=== PATIENT | female | born 1995 | race Caucasian/White ===

== ENCOUNTER 2017-01-11 11:09 | Emergency (ER) | payer SELFPAY ==
[~2017-01-11] VITALS: Wt 90.6 kg
[2017-01-11] MEDS ORDERED: LIDOCAINE/MYLANTA 40 ML BTL PO STA (11:53)
[2017-01-11] MEDS ORDERED: FAMOTIDINE 20 MG INJ IV STA (11:53)
[2017-01-11] MEDS ORDERED: SOD CHLORIDE 0.9% 500 ML IV STA (11:53)
[2017-01-11 12:16] LABS: ADD SCAN DIFF NO
[2017-01-11 12:27] LABS: BASOPHILS % 0.3 % (0.0-2.0); EOSINOPHILS # 0.3 10^3/ul (0.0-0.5); EOSINOPHILS % 2.4 % (0.0-7.0); HEMATOCRIT 39.6 % (37.0-47.0); HEMOGLOBIN 13.4 g/dl (12.0-16.0); LYMPHOCYTES # 3.4 10^3/ul (0.8-2.9); LYMPHOCYTES % 28.6 % (18.0-55.0); MEAN CORPUSCULAR HEMOGLOBIN 27.4 pg (29.0-33.0); MEAN CORPUSCULAR HGB CONC 33.8 g/dl (32.0-37.0); MONOCYTE # 0.8 10^3/ul (0.3-0.9); MONOCYTES % 6.3 % (0.0-13.0); NEUTROPHIL # 7.5 10^3/ul (1.6-7.5); NEUTROPHILS % 62.2 % (30.0-74.0); PLATELET COUNT 374 10^3/UL (140-415); RED BLOOD COUNT 4.89 10^6/ul (4.20-5.40); RED CELL DISTRIBUTION WIDTH 12.8 % (11.5-14.5)
[2017-01-11 12:29] LABS: ADD UMIC YES; UR AMORPHOUS CRYSTAL FEW /HPF (NONE SEEN); UR ASCORBIC ACID NEGATIVE (NEGATIVE); UR BACTERIA FEW /HPF (NONE SEEN); UR BILIRUBIN (Dip) NEGATIVE (NEGATIVE); UR BLOOD (Dip) NEGATIVE (NEGATIVE); UR CLARITY SLIGHTLY CLOUDY (CLEAR); UR COLOR YELLOW (YELLOW); UR GLUCOSE (Dip) NEGATIVE (NEGATIVE); UR KETONES (Dip) NEGATIVE (NEGATIVE); UR LEUKOCYTE ESTERASE (Dip) TRACE Leu/ul (NEGATIVE); UR NITRITE (Dip) NEGATIVE (NEGATIVE); UR RBC 2 /HPF (0-5); UR SPECIFIC GRAVITY (Dip) 1.024 (1.003-1.030); UR SQUAMOUS EPITHELIAL CELL FEW /HPF (FEW); UR TOTAL PROTEIN (Dip) NEGATIVE (NEGATIVE); UR UROBILINOGEN (Dip) NEGATIVE (NEGATIVE)
[2017-01-11 12:44] LABS: ALBUMIN 4.3 g/dl (3.3-4.9); ALBUMIN/GLOBULIN RATIO 1.02; BILIRUBIN,INDIRECT 0.3 mg/dl (0-1.1); BILIRUBIN,TOTAL 0.3 mg/dl (0.2-1.3); CALCIUM 9.7 mg/dl (8.4-10.2); CREATININE 0.65 mg/dl (0.44-1.00); TOTAL PROTEIN 8.5 g/dl (6.1-8.1)
--- NOTE | 2017-01-11 13:06 | RADRPT ---
PROCEDURE: CT Abdomen and Pelvis without contrast. CLINICAL INDICATION: Abdominal pain TECHNIQUE: CT scan of the abdomen and pelvis without contrast was [facility] without intravenous contrast. Coronal and sagittal reformatted images were obtained from the axial source images. Images were reviewed on a high-resolution PACS workstation. One or more of the following does reduction techniques were used: Automated exposure control; adjustment of the mA an d/or kV according to patient size; use of the aorta of reconstruction technique. The total exam CTD I equals 17.7 mGy and the total exam DLP equals 1070 2.33 mGy-cm. COMPARISON: None available. FINDINGS: The lung bases are clear. Heart size is normal, and there is no evidence of pericardial thickening or effusion. Note is made of pneumobilia. The liver, spleen, and pancreas are otherwise normal. There is mild d ilatation of the extrahepatic bile duct which measures up to 9 mm. There is a biliary stent which i s predominantly within the duodenum, though the proximal tip may be lodged within the region of the ampulla.. The gallbladder is contracted.. The adrenal glands are normal. The kidneys without renal calculus or hydronephrosis. The aorta is of normal caliber. There is no retroperitoneal lymph node enlargment. There is no evidence of large or small bowel obstruction. There is mild retained colonic stool. A normal appendix is identified. No free fluid or fluid collections are identified. No inflammatory changes are seen. The uterus is present. No enlarged pelvic sidewall lymph nodes are seen. The bladder is decompresse d and collapsed. No free fluid is identified. The inguinal regions are unremarkable. The bones are intact. IMPRESSION: 1. Biliary ductal stent which is predominantly within the duodenum. The proximal tip of the stent is likely within the distal common bile duct. There is mild common bile duct dilatation and pneumob rafael. RPTAT: KK .Conrado Gilbert MD, MD Date Time Electronically viewed and signed by .Conrado Gilbert MD, MD on 01/11/2017 13:05 .B/
--- NOTE | 2017-01-11 14:01 | RADRPT ---
PROCEDURE: US Abdomen (right upper quadrant). CLINICAL INDICATION: Abdominal pain. TECHNIQUE: Multiple real-time longitudinal and transverse images of the right upper quadrant of th e abdomen were acquired utilizing a curved array transducer. Images were reviewed on a high-resoluti on PACS workstation. COMPARISON: Correlation with CT from the same day. FINDINGS: The liver is normal in size and echogenicity without focal mass or intrahepatic biliary dilatation. The gallbladder is normal. There is no pericholecystic fluid or gallbladder wall thickening or gal lstones. No intrahepatic biliary dilatation is seen. The common bile duct measures 6.7 mm in maxim al dimension. The pancreas is not well seen due to overlying bowel gas. No free fluid is identifie d. The right kidney measures 11.5 cm in length. There is normal echogenicity within the right kidney. There is no perinephric fluid collection. No hydronephrosis, mass, or calculus is seen. IMPRESSION: Prominent common bile duct measuring 6.7 mm. The CBD stent is not seen. RPTAT: JJ .Som Gutierrez MD, MD Date Time Electronically viewed and signed by .Som Gutierrez MD, on 01/11/2017 14:00 .A/
[2017-01-11] MEDS ORDERED: FAMO-96 PO (14:13)
[2017-01-11] MEDS ORDERED: ACET1TAB40 PO (14:13)
--- NOTE | 2017-01-11 14:40 | ERD ---
ER Documentation Chief Complaint Date/Time DATE: 01/11/17 TIME: 14:32 Chief Complaint ABD PAIN FOR THE PAST 2 DAYS, PT HAS SOME NAUSEA . NO DYSURIA NOTED. HPI This is a 21-year-old female with history of a stent placed in her common bile duct 1 year ago and pyloric stenosis as a child presenting to the emergency department complaining of epigastric pain and acid reflux for the past week. Patient denies any current nausea today. Denies any vomiting, diarrhea, constipation, dysuria, fevers. Patient states that she tried omeprazole for the past week without any relief. Patient states that she has been seen at [facility] in which they have done an ultrasound did not find anything and discharge her. Patient states that she took 2 Tylenol this morning without any relief. ROS All systems reviewed and are negative except as per history of present illness. Medications Home Meds Active Scripts Acetaminophen with Codeine (Acetaminophen-Cod #3 Tablet) 1 Each Tablet, 1 TAB PO Q6H Y for PAIN, #7 TAB Prov:DAVON OLIVER PA-C 01/11/17 Famotidine* (Pepcid*) 20 Mg Tablet, 20 MG PO BID for 14 Days, TAB Prov:DAVON OLIVER PA-C 01/11/17 PMhx/Soc History of Surgery: No Anesthesia Reaction: No Hx Neurological Disorder: No Hx Respiratory Disorders: No Hx Cardiac Disorders: No Hx Psychiatric Problems: No Hx Miscellaneous Medical Probl: No Hx Alcohol Use: No Hx Substance Use: No Hx Tobacco Use: No Smoking Status: Never smoker Physical Exam Vitals Vital Signs Date Time Temp Pulse Resp B/P Pulse Ox O2 Delivery O2 Flow Rate FiO2 01/11/17 11:19 98.2 97 20 140/75 100 Physical Exam GENERAL: well-developed/well-nourished, in no apparent distress, non-toxic appearing HENT: NC/AT, moist mucous membranes EYES: Conjunctiva normal NECK: Supple, no lymphadenopathy PULM: CTA bilaterally, no rales, rhonchi, or wheezing heard CV: Normal S1S2, RRR, good capillary refill GI: Soft, non-distended, tender to palpation epigastric region Normal bowel sounds, no masses or organomegaly felt on exam No gross peritonitis, no bruits Negative Rovsing, negative Ye, negative McBurney's point, Negative CVAT BACK: No masses EXT: No clubbing, cyanosis, or edema NEURO: Alert and Orientated SKIN: Intact, normal turgor PSYCH: Normal mood and mentation Result Diagram: 01/11/17 1200 01/11/17 1200 Results 24 hrs Laboratory Tests Test 01/11/17 11:00 01/11/17 12:00 Urine Color YELLOW Urine Clarity SLIGHTLY CLOUDY Urine pH 7.0 Urine Specific [place] 1.024 Urine Ketones NEGATIVEmg/dL Urine Nitrite NEGATIVEmg/dL Urine Bilirubin NEGATIVEmg/dL Urine Urobilinogen NEGATIVEmg/dL Urine Leukocyte Esterase TRACELeu/ul Urine Microscopic RBC 2/HPF Urine Microscopic WBC 2/HPF Urine Squamous Epithelial Cells FEW/HPF Urine Amorphous Crystals FEW/HPF Urine Bacteria FEW/HPF Urine Hemoglobin NEGATIVEmg/dL Urine Glucose NEGATIVEmg/dL Urine Total Protein NEGATIVEmg/dl White Blood Count 12.010^3/ul Red Blood Count 4.8910^6/ul Hemoglobin 13.4g/dl Hematocrit 39.6% Mean Corpuscular Volume 81.0fl Mean Corpuscular Hemoglobin 27.4pg Mean Corpuscular Hemoglobin Concent 33.8g/dl Red Cell Distribution Width 12.8% Platelet Count 25785^3/UL Mean Platelet Volume 10.0fl Neutrophils % 62.2% Lymphocytes % 28.6% Monocytes % 6.3% Eosinophils % 2.4% Basophils % 0.3% Nucleated Red Blood Cells % 0.0/100WBC Neutrophils # 7.510^3/ul Lymphocytes # 3.410^3/ul Monocytes # 0.810^3/ul Eosinophils # 0.310^3/ul Basophils # 0.010^3/ul Nucleated Red Blood Cells # 0.010^3/ul Sodium Level 144mmol/L Potassium Level 4.0mmol/L Chloride Level 100mmol/L Carbon Dioxide Level 27mmol/L Anion Gap 21 Blood Urea Nitrogen 12mg/dl Creatinine 0.65mg/dl Glucose Level 94mg/dl Calcium Level 9.7mg/dl Total Bilirubin 0.3mg/dl Direct Bilirubin 0.00mg/dl Indirect Bilirubin 0.3mg/dl Aspartate Amino Transf (AST/SGOT) 25IU/L Alanine Aminotransferase (ALT/SGPT) 30IU/L Alkaline Phosphatase 76IU/L Total Protein 8.5g/dl Albumin 4.3g/dl Globulin 4.20g/dl Albumin/Globulin Ratio 1.02 Lipase 100U/L Current Medications Medications (Trade) Dose Ordered Sig/Amadeo Route PRN Reason Start Time Stop Time Status Last Admin Dose Admin Miscellaneous Medication (Gi Cocktail (2)) 40 ml ONCE STAT PO 01/11/17 11:53 01/11/17 11:57 DC 01/11/17 12:14 Famotidine 20 mg 20 mg ONCE STAT IV 01/11/17 11:53 01/11/17 11:57 DC 01/11/17 12:14 Sodium Chloride (NS) 500 ml @ 500 mls/hr Q1H STAT IV 01/11/17 11:53 01/11/17 12:52 DC 01/11/17 12:14 Procedures/MDM This is a 21-year-old female with history of a stent placed in her common bile duct 1 year ago and pyloric stenosis as a child presenting to the emergency department complaining of epigastric pain and acid reflux for the past week, likely due to gastritis. Low suspicion for significant choledocholithiasis, did not exceed 7mm. Low suspicion for cholangitis cholecystitis pancreatitis. Patient has been evaluated by [facility] yesterday and she states that they discharged her without doing anything. Patient wanted more imaging done. I have discussed risks vs benefits of a CT and patient still wanted CT of her abdomen and pelvis. Radiologist stated: CT abd and pelvis without contrast: biliary ductal stent which is predominantly within the duodenum. The proximal tip of the stent is likely within the distal common bile duct. There is mild common bile duct dilatation and pneumobilia. Gallbladder US: Prominent common bile duct measuring 6.7 mm. The CBD stent is not seen. Lab work was drawn. CBC did not show any evidence of leukocytosis or anemia. CMP did not show any evidence of renal, liver, or electrolyte abnormalities. Lipase was normal. UA did not show any evidence of hemoglobin or urinary tract infection. In the ED patient was given a GI cocktail with Pepcid, I have reassessed her and she seemed feels a lot better. I have discussed with patient to follow-up with her GI specialist. Discussed return to the ER for any worsening signs and. She understands and agrees with this plan. Prescription for Pepcid was provided Departure Diagnosis: Primary Impression: Epigastric pain Condition: Stable Patient Instructions: Treating Gastritis, Gerd (Adult), Gastritis (Adult) Referrals: NO PRIMARY,CARE PHYSICIAN (PCP) [facility] ([place]) Usted se del rosario hecho un examen mdico de control que le indica que no est en dior condicin que requiera tratamiento urgente en el Departamento de Emergencia. Un estudio ms profundo y el tratamiento de ray condicin pueden esperar sin ningn riesgo hasta que usted sea atendida/o en el consultorio de ray mdico o dior cl bailey. Es responsabilidad suya arreglar dior zain para el seguimiento del olga. MANEJO DE CONDICIONES NO URGENTES EN EL FUTURO 1) Si usted tiene un mdico de atencin primaria: Usted debera llamar a ray mdico de atencin primaria antes de venir al departamento de emergencia. Despus de las horas de consultorio, ray doctor o ray asociado/a est disponible por telfono. El mdico o enfermero de travis en el servicio telefnico puede asesorarle por laura medio para atender el problema, o olga contrario se puede programar dior zain. 2) Si usted no tiene un mdico de atencin primaria: Llame al mdico o clnica de referencia que aparece abajo wang las horas de consultorio para hacer dior zain para que le vean. CLINICAS: [facility] [phone] [facility] [phone] [address] [facility] [address] [address] [facility] [phone] [address] [facility] [facility] [phone] [address] [facility] [phone] [address] [facility] [phone] [address] [facility] ([place]) Usted se del rosario hecho un examen mdico de control que le indica que no est en dior condicin que requiera tratamiento urgente en el Departamento de Emergencia. Un estudio ms profundo y el tratamiento de ray condicin pueden esperar sin ningn riesgo hasta que usted sea atendida/o en el consultorio de ray mdico o dior cl bailey. Es responsabilidad suya arreglar dior zain para el seguimiento del olga. MANEJO DE CONDICIONES NO URGENTES EN EL FUTURO 1) Si usted tiene un mdico de atencin primaria: Usted debera llamar a ray mdico de atencin primaria antes de venir al departamento de emergencia. Despus de las horas de consultorio, ray doctor o ray asociado/a est disponible por telfono. El mdico o enfermero de travis en el servicio telefnico puede asesorarle por laura medio para atender el problema, o olga contrario se puede programar dior zain. 2) Si usted no tiene un mdico de atencin primaria: Llame al mdico o condado institucions de referencia que aparece abajo wang las horas de consultorio para hacer dior zain para que le vean. SI USTED NO PUEDE PAGAR PARA BETTYE UN MEDICO puede ir a: [facility] [address] [place] [address] [facility] [address] [place] [address] [facility] [address] [place] [address] [facility]A [facility] [address], [place] [id number] Additional Instructions: Visite a ray mdico maana para un EXAMEN.Regrese a estas instalaciones si no se mejora dustin esperbamos o dustin le dijimos. Post toda la medicina becky y dustin se le indic. La medicina que se le recet puede causarle sueo.NO DEBE MANEJAR NI OPERAR MAQUINARIAS PELIGROSAS mientras esta tomando esta medicina! Regrese a estas instalaciones si no se mejora dustin esperbamos o dustin le dijimos. DAVON OLIVER PA-C Jan 11, 2017 14:40
== END 2017-01-11 14:19 | disposition home or self-care (01) ==
LOC: FTE 11:09
DX: R10.13 Epigastric pain (principal)
CPT/HCPCS: 74176; 76705; 80053; 81001; 83690; 85025; J7040; 36415; 96374

== ENCOUNTER 2017-05-08 20:30 | Emergency (ER) | payer MEDICAID ==
[~2017-05-08] VITALS: Ht 162.6 cm; Wt 91.0 kg
[~2017-05-08 20:30] MED LIST: ACET1TAB40 PO; FAMO-96 PO
[2017-05-08 20:35] VITALS: Ht 162.6 cm; Wt 91.0 kg
[2017-05-08] MEDS ORDERED: ACETAMINOPHEN 500 MG TAB PO STA (21:01)
[2017-05-08] MEDS ORDERED: SOD CHLORIDE 0.9% 1,000 ML IV STA (21:01)
[2017-05-08] MEDS ORDERED: DICYCLOMINE 10 MG CAP PO ONE (21:30)
--- NOTE | 2017-05-08 21:32 | ERD ---
ER Documentation Chief Complaint Chief Complaint PT IN C/O "HEADACHE AND MY STOMACH FEELS FUNNY" HPI Patient is a 21-year-old female presents to the ED for concerns of headache and abdominal pain. Patient states her headaches earlier today. Patient describes the pain to be bandlike across the frontal aspect of her head. Patient states the pain is throbbing in nature. Patient denies any radiation of pain, visual changes, jaw claudication or loss of consciousness. Patient denies any photophobia or phonophobia. She reports feeling headaches in the past. She states 2 weeks ago she had some headache. Patient requesting Tylenol with some alleviation of symptoms. Patient denies any sudden, 10 out of 10, worsening pain. Patient reports left lower quadrant pain 3 days. Patient states pain is getting gradually worse. Patient describes the pain to be "pulsating". Patient states she has "movements in my stomach". Patient also reports brown liquidy stools for the last week, approximately 4 episodes per day. Patient denies any blood in her stools or rectal bleeding. Patient denies any dysuria, frequency, urgency or hematuria. Patient denies any excessive vaginal discharge or bleeding. ROS All systems reviewed and are negative except as per history of present illness. Medications Home Meds Active Scripts Dicyclomine Hcl* (Bentyl*) 10 Mg Capsule, 10 MG PO QID, #20 CAP Prov:STEVEN MCGINNIS PA-C 05/08/17 Acetaminophen* (Tylophen*) 500 Mg Capsule, 1 CAP PO Q6H Y for PAIN AND OR ELEVATED TEMP, #20 CAP Prov:STEVEN MCGINNIS PA-C 05/08/17 Acetaminophen with Codeine (Acetaminophen-Cod #3 Tablet) 1 Each Tablet, 1 TAB PO Q6H Y for PAIN, #7 TAB Prov:DAVON OLIVER PA-C 01/11/17 Famotidine* (Pepcid*) 20 Mg Tablet, 20 MG PO BID for 14 Days, TAB Prov:DAVON OLIVER PA-C 01/11/17 Allergies Allergies: Coded Allergies: No Known Allergy (Unverified , 05/08/17) PMhx/Soc Medical and Surgical Hx: pt denies Medical Hx, pt denies Surgical Hx History of Surgery: No Anesthesia Reaction: No Hx Neurological Disorder: No Hx Respiratory Disorders: No Hx Cardiac Disorders: No Hx Psychiatric Problems: No Hx Miscellaneous Medical Probl: No Hx Alcohol Use: No Hx Substance Use: No Hx Tobacco Use: No Smoking Status: Never smoker Physical Exam Vitals Vital Signs Date Time Temp Pulse Resp B/P Pulse Ox O2 Delivery O2 Flow Rate FiO2 05/08/17 20:35 99.6 96 18 146/84 99 Physical Exam GENERAL: Well-developed, well-nourished female. Appears in no acute distress. Speaking in full sentences. HEAD: Normocephalic, atraumatic. EYES: Pupils are equally reactive bilaterally. EOMs grossly intact. No conjunctival erythema. ENT: Moist mucous membranes. No uvula deviation. No kissing tonsils. NECK: Supple. No meningismus. Normal range of motion of the neck. LUNG: Clear to auscultation bilaterally. No rhonchi, wheezing, rales or coarse breath sounds. HEART: Regular rate and rhythm. No murmurs, rubs or gallops. ABDOMEN: Soft, and nondistended. Minimally tender to palpation in all 4 quadrants. Positive bowel sounds in all four quadrants. No rebound tenderness, no guarding. (-) McBurney's point tenderness. No CVA tenderness. BACK: No midline tenderness. EXTREMITIES: Equal pulses bilaterally. No peripheral clubbing, cyanosis or edema. No unilateral leg swelling. NEUROLOGIC: Alert and oriented x3, cooperative. Mood and affect appropriate to situation. Cranial nerves II through XII are grossly intact. Normal speech. Motor exam: 5/5 strength in upper and lower extremities. Sensory exam: Sensation intact to light touch on all four extremities. Cerebellar function exam: No dysmetria on [id number] test. Steady gait. No pronator drift. SKIN: Normal color. Warm and dry. No rashes or lesions. Result Diagram: 05/08/17211905/08/172119 Results 24 hrs Laboratory Tests Test 05/08/17 21:20 05/08/17 22:20 White Blood Count 13.110^3/ul Red Blood Count 5.0710^6/ul Hemoglobin 13.9g/dl Hematocrit 41.1% Mean Corpuscular Volume 81.1fl Mean Corpuscular Hemoglobin 27.4pg Mean Corpuscular Hemoglobin Concent 33.8g/dl Red Cell Distribution Width 13.2% Platelet Count 44795^3/UL Mean Platelet Volume 10.2fl Neutrophils % 50.8% Lymphocytes % 34.4% Monocytes % 7.3% Eosinophils % 6.7% Basophils % 0.4% Nucleated Red Blood Cells % 0.0/100WBC Neutrophils # 6.710^3/ul Lymphocytes # 4.510^3/ul Monocytes # 1.010^3/ul Eosinophils # 0.910^3/ul Basophils # 0.110^3/ul Nucleated Red Blood Cells # 0.010^3/ul Urine Color YELLOW Urine Clarity CLEAR Urine pH 7.0 Urine Specific [place] 1.013 Urine Ketones NEGATIVEmg/dL Urine Nitrite NEGATIVEmg/dL Urine Bilirubin NEGATIVEmg/dL Urine Urobilinogen 2+mg/dL Urine Leukocyte Esterase NEGATIVELeu/ul Urine Microscopic RBC 1/HPF Urine Microscopic WBC 1/HPF Urine Hemoglobin 1+mg/dL Urine Glucose NEGATIVEmg/dL Urine Total Protein NEGATIVEmg/dl Sodium Level 141mmol/L Potassium Level 3.6mmol/L Chloride Level 105mmol/L Carbon Dioxide Level 24mmol/L Anion Gap 16 Blood Urea Nitrogen 7mg/dl Creatinine 0.61mg/dl Glucose Level 103mg/dl Calcium Level 8.9mg/dl Total Bilirubin 0.1mg/dl Direct Bilirubin 0.00mg/dl Indirect Bilirubin 0.1mg/dl Aspartate Amino Transf (AST/SGOT) 27IU/L Alanine Aminotransferase (ALT/SGPT) 31IU/L Alkaline Phosphatase 94IU/L Total Protein 8.2g/dl Albumin 4.2g/dl Globulin 4.00g/dl Albumin/Globulin Ratio 1.05 Lipase 135U/L Serum HCG, Qualitative NEGATIVE Current Medications Medications (Trade) Dose Ordered Sig/Amadeo Route PRN Reason Start Time Stop Time Status Last Admin Dose Admin Sodium Chloride (NS) 1,000 ml @ 1,000 mls/hr Q1H STAT IV 05/08/17 21:01 05/08/17 22:00 DC 05/08/17 21:22 Acetaminophen (Tylenol Tab) 500 mg ONCE STAT PO 05/08/17 21:01 05/08/17 21:03 DC 05/08/17 21:22 Dicyclomine HCl (Bentyl) 10 mg ONCE ONCE PO 05/08/17 21:30 05/08/17 21:31 DC 11/11/17 21:22 Procedures/MDM ED COURSE: The patient was stable throughout ED course. I kept the patient and/or family informed of laboratory and diagnostic imaging results throughout the ED course. MEDICATIONS GIVEN: IV Fluids, Bentyl Patient tolerated medication well with no adverse reactions. Patient reported improvement in pain. MEDICAL DECISION MAKING: Patient is a 21-year-old female presents to the ED for concerns of headache and abdominal pain. States her headache started earlier today. Patient described the pain to be in her frontal region, bandlike. Patient has had worsening abdominal pain for last 3 days, and her left lower quadrant. She denies any fevers, chills, nausea, vomiting. She did admit to diarrhea. Vital signs were reviewed. Patient was afebrile. Patient was not hypoxic. Full neuro exam was normal. CBC showed no evidence of severe anemia. Patient was noted to have a white count of 13. CMP showed no evidence of electrolyte abnormalities, severe acidosis, alkalosis, renal failure, or liver disease. Lipase showed no evidence of acute pancreatitis. UA showed no evidence of acute infection or hematuria. Urine test was negative. Lab findings are explained to the patient. Patient states she continued to feel as if there is something moving inside of her and feels as if she is .. Patient states that her mother had a falls urine test in the past and she is requesting that a blood hCG obtained today. HCG was negative. Patient's previous medical records are reviewed. Patient has CT abdomen pelvis approximately 3 months ago. Patient's abdominal exam was essentially benign. Patient had no guarding or rebound. Patient had no peritoneal signs. I do not feel that a repeat CT scan of the abdomen pelvis is indicated at this time. Patient is elevated white count is likely due to a viral syndrome. Patient does have diarrhea at this time. Patient was advised that she should drink plenty of fluids. Patient describes she continues to have diarrhea she should follow-up with her primary care physician for stool study. Patient was also advised that she should follow-up with a GI specialist with her symptoms persist for colonoscopy versus endoscopy on an outpatient basis. At this time, patient's presentation is most consistent with abdominal pain of unknown etiology and tension headache.. Low suspicion for acute coronary syndrome, DKA, bowel perforation, bowel obstruction, cholecystitis, choledocholithiasis, diverticulitis, pancreatitis,UTI, pyelonephritis, nephrolithiasis, appendicitis, constipation, , ectopic , PID, ovarian torsion. PRESCRIPTIONS: Tylenol, Zofran DISCHARGE: At this time, patient is stable for discharge and outpatient management. Referral information was provided. Patient was given a copy of all blood work obtained today. I have instructed the patient to follow-up with his/her primary care physician in 1-2 days. I have instructed the patient to promptly return to the ER at any time for any new or worsening symptoms including increased pain, nausea, vomiting, diarrhea, fever, weakness or LOC. The patient and/or family expressed understanding of and agreement with this plan. All questions were answered. Home care instructions were provided. Disclaimer: Inadvertent spelling and grammatical errors are likely due to EHR/ dictation software use and do not reflect on the overall quality of patient care. Also, please note that the electronic time recorded on this note does not necessarily reflect the actual time of the patient encounter. Departure Diagnosis: Primary Impression: Abdominal pain Abdominal location: left lower quadrant Qualified Code: R10.32 - Left lower quadrant pain Additional Impression: Tension headache Condition: Stable Patient Instructions: Abdominal Pain Additional Instructions: Call your primary care doctor TOMORROW for an appointment during the next 1-2 days.See the doctor sooner or return here if your condition worsens before your appointment time. STEVEN MCGINNIS PA-C May 08, 2017 21:31
[2017-05-08 21:50] LABS: BASOPHIL # 0.1 10^3/ul (0.0-0.1); BASOPHILS % 0.4 % (0.0-2.0); EOSINOPHILS # 0.9 10^3/ul (0.0-0.5); EOSINOPHILS % 6.7 % (0.0-7.0); HEMATOCRIT 41.1 % (37.0-47.0); HEMOGLOBIN 13.9 g/dl (12.0-16.0); LYMPHOCYTES # 4.5 10^3/ul (0.8-2.9); LYMPHOCYTES % 34.4 % (18.0-55.0); MEAN CORPUSCULAR HEMOGLOBIN 27.4 pg (29.0-33.0); MEAN CORPUSCULAR HGB CONC 33.8 g/dl (32.0-37.0); MEAN CORPUSCULAR VOLUME 81.1 fl (72.0-104.0); MEAN PLATELET VOLUME 10.2 fl (7.4-10.4); MONOCYTES % 7.3 % (0.0-13.0); NEUTROPHIL # 6.7 10^3/ul (1.6-7.5); NEUTROPHILS % 50.8 % (30.0-74.0); PLATELET COUNT 388 10^3/UL (140-415); RED BLOOD COUNT 5.07 10^6/ul (4.20-5.40); RED CELL DISTRIBUTION WIDTH 13.2 % (11.5-14.5); WHITE BLOOD COUNT 13.1 10^3/ul (4.8-10.8)
[2017-05-08 22:07] LABS: ALBUMIN 4.2 g/dl (3.3-4.9); ALBUMIN/GLOBULIN RATIO 1.05; BILIRUBIN,INDIRECT 0.1 mg/dl (0-1.1); BILIRUBIN,TOTAL 0.1 mg/dl (0.2-1.3); CALCIUM 8.9 mg/dl (8.4-10.2); CREATININE 0.61 mg/dl (0.44-1.00); POTASSIUM 3.6 mmol/L (3.5-5.1); TOTAL PROTEIN 8.2 g/dl (6.1-8.1)
[2017-05-08 22:25] LABS: ADD UMIC YES; UR ASCORBIC ACID NEGATIVE (NEGATIVE); UR BILIRUBIN (Dip) NEGATIVE (NEGATIVE); UR BLOOD (Dip) 1+ mg/dL (NEGATIVE); UR CLARITY CLEAR (CLEAR); UR COLOR YELLOW (YELLOW); UR GLUCOSE (Dip) NEGATIVE (NEGATIVE); UR KETONES (Dip) NEGATIVE (NEGATIVE); UR LEUKOCYTE ESTERASE (Dip) NEGATIVE Leu/ul (NEGATIVE); UR NITRITE (Dip) NEGATIVE (NEGATIVE); UR RBC 1 /HPF (0-5); UR SPECIFIC GRAVITY (Dip) 1.013 (1.003-1.030); UR TOTAL PROTEIN (Dip) NEGATIVE (NEGATIVE); UR UROBILINOGEN (Dip) 2+ mg/dL (NEGATIVE)
[2017-05-08] MEDS ORDERED: DICY10CA60 PO (23:11)
[2017-05-08] MEDS ORDERED: ACET500C5 PO (23:11)
== END 2017-05-08 23:22 | disposition home or self-care (01) ==
LOC: FTE 20:30
DX: R10.32 Left lower quadrant pain (principal); G44.209 Tension-type headache, unspecified, not intractable
CPT/HCPCS: 36415; 80053; 81001; 83690; 84703; 85025; J7030; Z7502; Z7610